=== PATIENT | male | born 1975 ===

== ENCOUNTER → 2018-09-29 19:44 | Outpatient (REF) | payer BC, SELFPAY ==
[2018-09-29 20:19] LABS: Add Manual Diff / Slide Review NO; Basophils Absolute Auto 0 /uL (0-100); Basophils Percent Auto 0.4 % (0-2); Eosinophils Absolute Auto 200 /uL (0-450); Eosinophils Percent Auto 1.9 % (2-4); Hematocrit 43.8 % (41-53); Hemoglobin 15.2 g/dL (13.5-17.5); Lymphocytes Absolute Auto 2400 /uL (1100-4500); Lymphocytes Percent Auto 23.3 % (25-40); Mean Corpuscular HGB Conc 34.8 % (30-36); Mean Corpuscular Hemoglobin 32.4 PG (26-34); Mean Corpuscular Volume 93.1 fL (80-100); Monocytes Absolute Auto 1100 /uL (0-900); Neutrophils Absolute Auto 6500 /uL (1500-7000); Neutrophils Percent Auto 63.4 % (50-75); Platelet Count 246 X10^3/uL (150-400); Red Cell Distribution Width 12.9 % (11.6-14.8); White Blood Cell Count 10.2 X10^3/uL (4.5-11.0)
[2018-09-29 21:11] LABS: Uric Acid 7.4 mg/dL (3.5-8.5)
== END ==
LOC: LAB 19:44
PROVIDERS: Visit Provider Physician Assistant Medical
DX: M10.9 Gout, unspecified (principal)
CPT/HCPCS: 36415; 84550; 85025